=== PATIENT | female | born 1945 | race Hispanic/Latino ===

== ENCOUNTER 2017-11-01 09:00 | Outpatient (RCR) | payer MEDICARE, OTHER ==
[~2017-11-01 09:00] MED LIST: ARICEPT PO; BACLOFEN10 MG PO; LOSARTAN 50 MG; MELOXICAM7.5 MG PO; METOPROLOL 50 MG; MYRBETRIQ50 MG; REGLAN 10 MG
== END 2017-11-02 ==
LOC: PT 09:00
PROVIDERS: ATTEND Specialist
DX: M75.102 Unspecified rotator cuff tear or rupture of left shoulder, not specified as traumatic (principal); M75.101 Unspecified rotator cuff tear or rupture of right shoulder, not specified as traumatic; M62.81 Muscle weakness (generalized)
CPT/HCPCS: 97010 ×2; 97110 ×5; 97162; G8984; G8985

== ENCOUNTER 2017-12-01 10:00 | Outpatient (RCR) | payer MEDICARE | END 2017-12-02 | LOC: PT 10:00 | PROVIDERS: ATTEND Specialist | DX: M75.102 Unspecified rotator cuff tear or rupture of left shoulder, not specified as traumatic (principal); M75.101 Unspecified rotator cuff tear or rupture of right shoulder, not specified as traumatic; M62.81 Muscle weakness (generalized) | CPT/HCPCS: 97010 ×2; 97110 ×12; 97139; G8984; G8985 ==

== ENCOUNTER 2017-12-14 11:00 | Outpatient (RCR) | payer MEDICARE | END 2018-01-02 | LOC: PT 11:00 | PROVIDERS: ATTEND Specialist | DX: M75.102 Unspecified rotator cuff tear or rupture of left shoulder, not specified as traumatic (principal); M75.101 Unspecified rotator cuff tear or rupture of right shoulder, not specified as traumatic; M62.81 Muscle weakness (generalized) | CPT/HCPCS: 97010; 97110 ×5; 97139; G8984; G8985 ==

== ENCOUNTER → 2017-12-20 | Outpatient (CLI) | payer OTHER ==
[~2017-12-20] MED LIST changes: +SODIUM CHLORIDE 0.9% 250ML 250 ML ONE
[2017-12-20 08:26] LABS: BLOOD UREA NITROGEN 16 mg/dL (7-26); BUN/CREATININE RATIO 21 (6-25); CREATININE, SERUM 0.77 mg/dL (0.57-1.11); EST GLOMERULAR FILTRATION RATE > 60 ML/MIN (60-)
--- NOTE | 2017-12-20 09:47 | Diagnostic Imaging Report ---
PROCEDURE: CT ABDOMEN \T\ PELVIS W/WO CONTRAST TECHNIQUE: The abdomen and pelvis were scanned utilizing a multidetector helical scanner from the diaphragm to the lesser trochanter before and after the IV administration of 100 cc Isovue 370 and the oral administration of water. Coronal and sagittal multiplanar reformations were obtained. Imaging was performed in prone position for CT urogram protocol. COMPARISON: CT of the abdomen and pelvis with contrast 08/05/2014. INDICATIONS: MICROSCOPIC HEMATURIA FINDINGS: LOWER THORAX: Subsegmental atelectasis in the dependent portions of the lingula and right middle lobe. HEPATOBILIARY: Calcified granuloma in hepatic segment 7. Otherwise no focal hepatic lesion or intrahepatic biliary ductal dilatation. The gallbladder is normal. SPLEEN: No splenomegaly. PANCREAS: No focal masses or ductal dilatation. ADRENALS: No adrenal nodules. KIDNEYS/URETERS: No renal, ureteral, or bladder calculi. No hydronephrosis. No focal renal mass lesion. Excretory phase images show no filling defects within the upper clipping systems, ureters, or urinary bladder, though the distalmost segment of the right ureter is poorly opacified, likely related to peristaltic activity. PELVIC ORGANS/BLADDER: The urinary bladder is incompletely distended but otherwise unremarkable. The uterus is not identified and has presumably been removed. No adnexal mass. PERITONEUM / RETROPERITONEUM: No ascites. No pneumoperitoneum. LYMPH NODES: No pelvic sidewall, retroperitoneal, or mesenteric lymphadenopathy. VESSELS: Atherosclerotic calcification of the abdominal aorta, branch vessels, and iliac arterial systems without aneurysmal dilatation. Common hepatic artery is replaced to the superior mesenteric artery. GI TRACT: Innumerable sigmoid diverticula without wall thickening or adjacent inflammatory change. Segments of large bowel are otherwise collapsed and poorly evaluated. Normal appendix. Small hiatal hernia. No small bowel dilatation to suggest obstruction. BONES AND SOFT TISSUES: No focal soft tissue abnormalities. Postsurgical changes of the anterior abdominal wall. No osseous destructive lesions. Multilevel degenerative disc changes and facet arthropathy of the lumbar spine. IMPRESSION: Poor opacification of the distal right ureter, likely related to peristalsis. Otherwise unremarkable CT urographic appearance of the kidneys, collecting systems, and bladder without calculus, parenchymal, or urothelial lesion. Atherosclerotic vascular disease. Large bowel diverticulosis without diverticulitis. Small hiatal hernia. Dictated by: Ren Blood M.D. on 12/20/2017 at 9:52 Electronically approved by: Ren Blood M.D. on 12/20/2017 at 9:52
== END ==
LOC: CT 07:38
PROVIDERS: ATTEND Urology
DX: R31.21 Asymptomatic microscopic hematuria (principal)
CPT/HCPCS: 36415; 74178; 82565; 84520; J7050

== ENCOUNTER → 2019-05-31 | Outpatient (CLI) | payer MEDICARE ==
[~2019-05-31] MED LIST changes: -SODIUM CHLORIDE 0.9% 250ML 250 ML ONE
--- NOTE | 2019-05-31 14:21 | Diagnostic Imaging Report ---
Abdomen, one view on 2 radiographs Clinical indications: Microscopic hematuria Comparison: None Findings: No calculi are identified over either renal shadow. The bowel gas pattern is nonobstructive. No acute osseous throughout its. Calcific densities project over the pelvis are likely phleboliths. Impression: No radiographically evident kidney stones. Signed by: Ashkan Yu MD on 05/31/2019 2:17 PM
--- NOTE | 2019-05-31 14:23 | Diagnostic Imaging Report ---
Ultrasound of the Kidneys, 05/31/2019. Clinical History: Microscopic hematuria. Discussion: Sonographic evaluation of the kidneys is performed. Right kidney: 10.3 cm in length, normal in size, with cortical thickness of 0.1 cm. Normal cortical echogenicity. No mass. No shadowing calculus. No hydronephrosis. Left kidney: 10.0 cm in length, normal in size, with cortical thickness of 0.5 cm. Normal cortical echogenicity. No mass. No shadowing calculus. No hydronephrosis. Limited Doppler evaluation demonstrates normal color Doppler flow within bilateral renal jeffrey. Fluid: No perinephric fluid. Bladder: Unremarkable. Bilateral ureteral jets are visualized IMPRESSION: Normal sonographic evaluation of the bilateral kidneys. Signed by: Ashkan Yu MD on 05/31/2019 2:20 PM
== END ==
LOC: US 12:57
PROVIDERS: ATTEND Urology
DX: R31.21 Asymptomatic microscopic hematuria (principal)
CPT/HCPCS: 74018; 76770